=== PATIENT | female | born 1955 | race Two or more races ===

== ENCOUNTER 2021-12-13 10:48 | Emergency (ER) | payer OTHER, MEDICAID ==
[~2021-12-13] VITALS: Ht 162.6 cm; Wt 94.8 kg
[2021-12-13] MEDS ORDERED: LIDOCAINE 1% HCL (LOCAL ANESTH.) INJ 20ML MDV ONE (14:25)
[2021-12-13] MEDS ORDERED: ONDANSETRON ODT 4 MG TAB PO ONE (16:00)
[2021-12-13] MEDS ORDERED: MORPHINE SULFATE INJ 2 MG/ml SYRG IM ONE (16:00)
[2021-12-13 16:14] VITALS: BP 121/62
[2021-12-13] MEDS ORDERED: LET TOPICAL SOLN 5 ML TOP ONE (16:15)
[2021-12-13] MEDS ORDERED: cefTRIAXone SOD 1,000 MG VL IM ONE (17:00)
== END 2021-12-13 16:55 | disposition left against medical advice (07) ==
LOC: ER 10:48
DX: L02.213 Cutaneous abscess of chest wall (principal); Z53.29 Procedure and treatment not carried out because of patient's decision for other reasons
CPT/HCPCS: 10060; 96372; 99284; C1887; J0696; J2001; J2270; J3490; Q0162

== ENCOUNTER 2022-02-25 11:00 | Emergency (ER) | payer OTHER, MEDICAID ==
[~2022-02-25] VITALS: Ht 162.6 cm; Wt 96.0 kg
[2022-02-25 13:01] VITALS: BP 133/76
[2022-02-25] MEDS ORDERED: CEPH-510 PO (13:27)
== END 2022-02-25 13:40 | disposition home or self-care (01) ==
LOC: ER 11:00
DX: S80.812A Abrasion, left lower leg, initial encounter (principal); Z88.0 Allergy status to penicillin; X58.XXXA Exposure to other specified factors, initial encounter; Y93.89 Activity, other specified; Y92.89 Other specified places as the place of occurrence of the external cause; Y99.8 Other external cause status